=== PATIENT | female | born 1985 | race Caucasian/White ===

== ENCOUNTER → 2020-02-15 | Outpatient (CLI) | payer BC, SELFPAY ==
[2020-02-21 04:54] LABS: HPV Reflexed? NOT INDICATED
== END | disposition home or self-care (01) ==
LOC: LABSPEC 14:26
PROVIDERS: PCP Family Medicine; Visit Provider Obstetrics & Gynecology
DX: Z12.4 Encounter for screening for malignant neoplasm of cervix (principal)
CPT/HCPCS: 88175; G0145

== ENCOUNTER → 2023-03-28 | Outpatient (CLI) | payer BC, SELFPAY ==
[2023-03-28 08:19] LABS: ALB/GLOB Ratio 1.1 RATIO (0.9-2.4); AST(SGOT) 21 U/L (15-37); Alanine Aminotransfer ALT/SGPT 20 U/L (13-56); Alkaline Phosphatase 52 U/L (45-117); Anion Gap 3 (5-15); BUN 10 mg/dL (7-18); BUN/Creat Ratio 11.4 RATIO (10-20); Chloride 108 mmol/L (98-107); Creatinine, Serum 0.88 mg/dL (0.55-1.02); EST Glomerular Filtration Rate 78 mL/min (>60); Est Glom Filt Rate - Afr Amer 94 mL/min (>60); Globulin 3.5 g/dL (2.2-4.2); Glucose 83 mg/dL (74-106); Potassium 3.7 mmol/L (3.5-5.1); Protein, Total 7.5 g/dL (6.4-8.2); Sodium Level 139 mmol/L (136-145)
[2023-03-30 08:41] LABS: Vitamin D,25 Hydroxy 38.2 ng/mL
[2023-04-03 11:09] LABS: Androstenedione 192 ng/dL (41-262); Testosterone, % Free 1.39 % (0.50-2.80); Testosterone, Free 0.56 ng/dL (0.10-0.85); Testosterone, Total 40 ng/dL (8-60)
== END | disposition home or self-care (01) ==
PROVIDERS: PCP Family Medicine; Visit Provider Obstetrics & Gynecology
DX: E55.9 Vitamin D deficiency, unspecified (principal); E28.1 Androgen excess
CPT/HCPCS: 36415; 80053; 82157; 82306; 82627; 84144; 84146; 84402; 84403; 82626

== ENCOUNTER → 2023-05-11 | Outpatient (CLI) | payer BC, SELFPAY ==
--- NOTE | 2023-05-11 09:25 | BI_ITS ---
MAMMOGRAPHY - BILATERAL DIAGNOSTIC REASON FOR EXAM: Female, 37 years old. Pea-sized lump in the left upper outer quadrant. PERTINENT HISTORY: Non-contributory. TECHNIQUE: Digital bilateral breast jeffrey (3D mammographic acquisition) in the CC and MLO projections. 2-D mediolateral oblique (MLO) and craniocaudad (CC) views of both breasts were obtained. CAD: Full Field Digital Mammography with Computer Added Detection was performed. COMPARISON: None. Baseline examination. FINDINGS: Breast Composition: The breasts are extremely dense, which lowers the sensitivity of mammography. There are no dominant masses or suspicious calcifications. No other significant abnormalities are identified. BI/DIAG MAMM W/CAD, BILAT IMPRESSION: Negative diagnostic mammogram. With the patient''s history of a palpable lump in the central lateral aspect of the left breast, correlation with ultrasound is recommended. ASSESSMENT CATEGORY: BIRADS Category 0: Incomplete. Need additional imaging evaluation. A letter regarding these results will be sent to the patient by the facility within 30 days. Approximately 10% of breast cancers are not detected by mammography. A normal mammogram should not delay biopsy of a clinically suspicious abnormality. Electronically Signed: Kostas Bui MD at 10:43 EDT ,
--- NOTE | 2023-05-11 09:27 | US_ITS ---
STUDY: ULTRASOUND BREAST - LEFT REASON FOR EXAM: Female, 37 years old. Abnormal screening mammogram. TECHNIQUE: Axial and longitudinal images of the LEFT breast were performed with a high resolution ultrasound transducer. # OF IMAGES: 6 COMPARISON: Comparison is made with prior mammogram dated May 11, 2023. FINDINGS: LEFT Breast: The mammographic abnormality corresponds to a 7 mm x 8 mm x 5 mm cyst at the 5:00 position of the breast at 5 cm from the nipple. US/Breast Limited Unilateral IMPRESSION: 7 mm x 8 mm x 5 mm cyst at the 5:00 position of the breast at 5 cm from the nipple. ASSESSMENT CATEGORY: BIRADS Category 2: Benign. A letter regarding these results will be sent to the patient by the facility within 30 days. Electronically Signed: Kostas Bui MD at 13:20 EDT ,
== END | disposition home or self-care (01) ==
PROVIDERS: PCP Nurse Practitioner Primary Care; Referring Provider Nurse Practitioner Primary Care; Visit Provider Family Medicine
DX: N63.20 Unspecified lump in the left breast, unspecified quadrant (principal)
CPT/HCPCS: 76642; 77062; 77066; G0279

== ENCOUNTER → 2023-06-09 | Outpatient (CLI) | payer BC, SELFPAY ==
[2023-06-09 09:11] LABS: Progesterone Level 1.69 ng/mL (See Comment); T3 Total - Triiodothyronine 1.04 ng/mL (0.6-1.81)
[2023-06-09 10:33] LABS: Estradiol 66.2 pg/mL; Follicle Stimulating Hormone 3.9 mIU/mL; Luteinizing Hormone 9.4 mIU/mL; T4 Free Direct 0.88 ng/dL (0.76-1.46); Thyroid Stim Hormone (TSH) 2.14 uIU/mL (0.358-3.74)
[2023-06-12 16:09] LABS: Anti-Mullerian Hormone,Serum 9.99 ng/mL (.)
== END | disposition home or self-care (01) ==
LOC: LAB 06:57
PROVIDERS: PCP Nurse Practitioner Primary Care; Referring Provider Obstetrics & Gynecology; Visit Provider Obstetrics & Gynecology
DX: N91.2 Amenorrhea, unspecified (principal)
CPT/HCPCS: 36415; 82670; 83001; 83002; 83516; 84144; 84439; 84443; 84480; 84481

== ENCOUNTER → 2023-06-20 | Outpatient (CLI) | payer BC, SELFPAY | END | disposition home or self-care (01) | LOC: LAB 07:03 | PROVIDERS: PCP Nurse Practitioner Primary Care; Visit Provider Obstetrics & Gynecology | DX: N80.9 Endometriosis, unspecified (principal) | CPT/HCPCS: 36415; 86304 ==

== ENCOUNTER → 2023-08-07 | Outpatient (CLI) | payer BC, SELFPAY ==
--- NOTE | 2023-08-07 15:49 | CT_ITS ---
EXAM: CT ABDOMEN AND PELVIS WITHOUT AND WITH INTRAVENOUS CONTRAST CLINICAL INDICATION: DUPLICATION OF L URETER TECHNIQUE: Helically acquired images were obtained of the abdomen and pelvis without and with intravenous contrast. This CT exam was performed using one or more of the following dose reduction techniques: automated exposure control, adjustment of the mA and/or kV according to patient size, and/or use of iterative reconstruction technique. CONTRAST: IV 75mL Isovue-300 COMPARISON: No relevant prior studies available. FINDINGS: LOWER THORAX: Unremarkable. Lung bases are clear. No cardiomegaly. No significant pericardial effusion. ABDOMEN: LIVER: Unremarkable. Homogeneous. No focal mass. GALLBLADDER AND BILE DUCTS: Unremarkable. No calcified gallstones. No gallbladder distention or wall edema. No intra- or extrahepatic biliary ductal dilation. PANCREAS: Unremarkable. No focal cystic or solid mass. SPLEEN: Unremarkable. Normal size without focal cystic or solid mass. ADRENALS: Unremarkable. No nodules. 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 Normal renal size and position. No hydronephrosis. STOMACH AND BOWEL: Unremarkable. No stomach or bowel distention. No focal inflammatory change. PELVIS: APPENDIX: No evidence of acute appendicitis. BLADDER: Unremarkable. REPRODUCTIVE: There is a fluid density mass in the right hemipelvis that measures 2.8 x 1.9 cm compatible with an ovarian cyst. There is a second low-density mass inferior and posterior to the first which measures roughly 2.1 x 2.4 cm possibly representing a second ovarian cyst that is inferior and posterior to the first and appears to have either septations or soft tissue within it. ABDOMEN and PELVIS: INTRAPERITONEAL SPACE: There is [id number] free fluid in the pelvis. No free air. BONES/JOINTS: Unremarkable. No suspicious lytic or blastic abnormality. SOFT TISSUES: Unremarkable. No discrete abdominal or pelvic wall hernia. VASCULATURE: Unremarkable. Abdominal aorta is non-dilated. LYMPH NODES: Unremarkable. No enlarged lymph nodes. CT/CT Abd/Pelvis W/WO Contrast IMPRESSION: Low-density masses in the right hemipelvis which may represent ovarian cysts. One of the cysts may have a soft tissue component to it. There is moderate free fluid in the pelvis. If indicated further evaluation with ultrasound may be beneficial. No other acute abnormalities are identified. Electronically Signed: Andrei Smart MD at 23:55 EST ,
== END | disposition home or self-care (01) ==
LOC: CT 15:45
PROVIDERS: PCP Nurse Practitioner Primary Care
DX: Q62.5 Duplication of ureter (principal)
CPT/HCPCS: 74178; Q9967

== ENCOUNTER → 2023-11-18 | Outpatient (CLI) | payer BC, SELFPAY ==
[2023-11-19 04:07] LABS: Cancer Antigen 125 17.2 U/mL (0.0-38.1)
== END | disposition home or self-care (01) ==
PROVIDERS: PCP Nurse Practitioner Primary Care; Referring Provider Obstetrics & Gynecology; Visit Provider Obstetrics & Gynecology
DX: N80.9 Endometriosis, unspecified (principal)
CPT/HCPCS: 36415; 86304

== ENCOUNTER → 2025-03-20 | Outpatient (CLI) | payer BC, SELFPAY ==
--- NOTE | 2025-03-20 17:43 | US_ITS ---
EXAM: US Pelvis Transabdominal and Transvaginal, Complete CLINICAL INDICATION: ENDOMETRIOSIS TECHNIQUE: Real-time complete transabdominal and transvaginal pelvic ultrasound with image documentation. Transvaginal imaging was used for better evaluation of the endometrium and adnexa. COMPARISON: No relevant prior studies available. FINDINGS: UTERUS/CERVIX: Unremarkable. No myometrial mass. The uterus measures 8.6 x 4.7 x 3.6 cm. The endometrial stripe measures 0.9 cm in thickness. RIGHT OVARY: 2.5 cm right ovarian cyst. Normal blood flow. The right ovary measures 5.2 x 3.3 x 2.5 cm. LEFT OVARY: Left ovary not visualized. FREE FLUID: No free fluid. BLADDER: Normal-appearing urinary bladder. Prevoid volume 326 cc. US/Pelvic (Non ) IMPRESSION: No acute findings in the pelvis. Reading Location: [facility]
== END | disposition home or self-care (01) ==
LOC: US 17:39
PROVIDERS: PCP Nurse Practitioner Primary Care; Referring Provider Obstetrics & Gynecology; Visit Provider Obstetrics & Gynecology
DX: N80.9 Endometriosis, unspecified (principal)
CPT/HCPCS: 76856